=== PATIENT | male | born 1980 | race Two or more races ===

== ENCOUNTER 2018-11-30 08:57 | Emergency (ER) | payer OTHER ==
[~2018-11-30] VITALS: Ht 177.8 cm; Wt 112.9 kg
[2018-11-30] MEDS ORDERED: PEPCID AC20 MG PO (15:37)
[2018-11-30] MEDS ORDERED: INTESTINEX680 M1 PO (15:37)
== END 2018-11-30 15:46 | disposition home or self-care (01) ==
LOC: ER 08:57
DX: R10.32 Left lower quadrant pain (principal); K62.5 Hemorrhage of anus and rectum